=== PATIENT | male | born 2005 | race Caucasian/White ===

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

== ENCOUNTER 2025-08-08 22:33 | Emergency (ER) | payer BC, MEDICAID ==
[~2025-08-08] VITALS: Ht 165.1 cm; Wt 47.8 kg
[~2025-08-08 22:33] MED LIST changes: +IBUP-2766 PO; -IBUP100O20 PO
--- NOTE | 2025-08-08 22:52 | Physician Documentation ---
History of Present Illness ~ Chief Complaint: Rash Stated Complaint: HAND RASH Time Seen by MD: 22:55 Primary Medical Doctor: [facility] This is 19-year-old male presents with an area of pain and redness to the posterior aspect of his left hand progressively worsening over the last three days, patient reports no systemic symptoms including fever or chills. Patient reports no other acute symptoms or concerns. Medication Reconciliation Allergies: Coded Allergies: No Known Allergies (Unverified , 06/15/14) Scheduled Cephalexin*Monohydrate* (Keflex*), 1 CAP PO QID Scheduled PRN Ibuprofen 100MG/5ML Susp* (Motrin 100 MG/5ML Susp.*), 300 ML PO TID PRN PRN for pain Past Medical History Past Medical History: No Pertinent History Past Surgical History: no surgical history Alcohol Use: None Drug Use: none Lives with: Mother Lives In: Home Occupation: child Review of Systems ROS As stated above in the HPI, otherwise all systems are reviewed and negative. Physical Exam Vital Signs: Temperature: 97.8, Source: Temporal, Heart Rate: 99, Respiratory Rate: 12, BP: 148/85, Pulse Oximetry: 100, Weight: 47.800 Oxygen Flow Rate: 0 Physical Exam VITALS: Reviewed and as above. GENERAL: Alert, nontoxic appearing, no apparent distress. RESPIRATORY: No increased work of breathing, no respiratory distress, speaking in full clear sentences CV: Brisk capillary refill to fingers of left hand SKIN: Skin of posterior left hand erythematous mildly tender to palpation, no induration, no fluctuance, area of lymphangitis traveling up left forearm NEURO: Sensation to left hand intact Progress Results/Orders Results/Orders Completed Orders - JELENA RICHMOND Cephalexin Capsule (Keflex Capsule) (08/08/25 22:55) Medications Received in ER Medications (Trade) Dose Ordered Sig/Jessica Route PRN Reason Start Time Stop Time Status Last Admin Dose Admin (Keflex capsule) 500 mg ONCE ONCE PO 08/08/25 22:55 08/08/25 22:56 DC 08/08/25 23:03 500 MG Vital Signs 08/08/25 08/08/25 22:36 23:06 Temp 97.8 98.6 Pulse 99 90 Resp 12 18 B/P (MAP) 148/85 140/80 Pulse Ox 100 99 O2 Flow Rate 0 Medical Decision Making Additional information obtaine: N/A Findings Presented with an area of tenderness and erythema to the posterior aspect of his left hand progressively worsening over the last three days, physical exam did demonstrate an area of lymphangitis traveling from the hand up the forearm, it is reassuring patient is otherwise well-appearing who hemodynamically stable. While there was no induration exam is suggestive of cellulitis or erysipelas. Patient to be treated with course of oral antibiotics, as patient is otherwise well appearing with a benign physical exam and no other acute symptoms or concerns reported he is appropriate for outpatient follow up. Provided home care instructions return to care precautions, and follow up instructions which he verbalized understanding of. Differential Dx:Considerations: Include: Atopic dermatitis, Candidiasis, C ontact dermatitis, Drug reaction, Erysipelas, Gangrene, Herpes zoster, Herpes simplex, Pediculosis, Pityriasis rosea, Psoriaisis, Scabies, Scarlet fever, Tinea, Varicella, Viral exanthema Departure Time of Disposition: 22:55 Disposition: HOME / SELF CARE / HOMELESS Impression: Primary Impression: Cellulitis Qualified Codes: L03.114 - Cellulitis of left upper limb Condition: Improved Discharge Instructions: Cellulitis, Adult Additional Instructions: This appears to be localized skin infection, keep the area clean and dry, please take antibiotics as prescribed. Please follow up with your primary care provider in the next few days. Please return to the emergency department for any new or worsening concerning symptoms. Referrals: NO PRIMARY CARE PROVIDER (PCP) Prescriptions Cephalexin*Monohydrate* (Keflex*) 500 Mg Capsule 1 CAP PO QID for 7 Days, #28 CAP Prov: JELENA RICHMOND 08/08/25 Education Educated: Patient Educated regarding: diagnosis, treatment, prognosis, need for follow up Signature Scribe Signature: No scribe Attestation: The note accurately reflects work and decisions made by me.LEOLA Enamorado 08/09/25 00:25 JELENA RICHMOND Aug 08, 2025 22:52
[2025-08-08] MEDS ORDERED: CEPH-585 PO (22:55)
[2025-08-08 23:06] VITALS: BP 140/80; PULSE 90; RESP 18; TEMP 98.6; O2SAT 99
== END 2025-08-08 23:07 | disposition home or self-care (01) ==
LOC: ER 22:33
DX: L03.114 Cellulitis of left upper limb (principal)
CPT/HCPCS: 99283